=== PATIENT | female | born 1990 | race Caucasian/White ===

== ENCOUNTER 2022-09-18 02:21 | Emergency (ER) | payer MEDICAID ==
[~2022-09-18] VITALS: Ht 180.3 cm; Wt 61.4 kg
[~2022-09-18 02:21] MED LIST: ALBU18HF2 INH; ALBU8HFA PO
[2022-09-18 02:38] VITALS: BP 122/87
[2022-09-18] MEDS ORDERED: clindamycin 150mg capsule PO ONE (04:55)
[2022-09-18] MEDS ORDERED: BUPIVAcaine 0.5% W/EPI /PF 10ml vial IJ STA (04:55)
[2022-09-18] MEDS ORDERED: CLIN150C2 PO (05:05)
== END 2022-09-18 05:36 | disposition home or self-care (01) ==
LOC: ER 02:22
DX: K08.89 Other specified disorders of teeth and supporting structures (principal); F17.200 Nicotine dependence, unspecified, uncomplicated; Z79.899 Other long term (current) drug therapy
CPT/HCPCS: 64400; 99284